=== PATIENT | male | born 1985 | race African-American/Black ===

== ENCOUNTER 2023-01-12 13:02 | Emergency (ER) | payer MEDICAID ==
[~2023-01-12] VITALS: Ht 177.8 cm; Wt 72.7 kg
[2023-01-12 15:39] VITALS: BP 125/82
[2023-01-15 03:07] LABS: HIV 1-2 SCREEN 4TH GEN W/RFLX Non Reactive (Non Reactive)
[2023-01-17 16:06] LABS: HSV 1 TYPE SPECIFIC IGG <0.91 index (0.00-0.90)
== END 2023-01-12 15:41 | disposition home or self-care (01) ==
LOC: EMS 13:02
DX: B00.9 Herpesviral infection, unspecified (principal); F17.210 Nicotine dependence, cigarettes, uncomplicated
CPT/HCPCS: 86695; 86696; 87389; 87491; 87591; 99281; 99283